=== PATIENT | female | born 1970 | race Asian ===

== ENCOUNTER 2017-03-07 14:34 | Emergency (ER) | payer OTHER ==
[~2017-03-07] VITALS: Ht 162.6 cm; Wt 64.1 kg
[~2017-03-07 14:34] MED LIST: AMOX500C2 PO; IBUP-1542 PO; PRED20TA PO
[2017-03-07 14:39] VITALS: Ht 162.6 cm; Wt 64.1 kg
--- NOTE | 2017-03-07 17:13 | ERD ---
ER Documentation Chief Complaint Chief Complaint sore throat x 5 days HPI 46-year-old otherwise healthy female presents to the emergency department for complaints of throat pain which radiates to her left ear 5 days. Patient is accompanied by her states that they have been to the urgent care 2 times in the past 5 days. She states the pain is an intermittent, 9 out of 10 pain in her throat which radiates to her left ear and worsens with eating or movement. she states she was treated with prednisone, Motrin, and azithromycin. They returned today and were told that the inflammation has significantly improved. The urgent care provider performed an ultrasound to rule out abscess and stated results were normal. Patient has been presented to the emergency department concerned as the pain has persisted. They are requesting to have a CT scan performed. She denies headache, fever, chills, cough, abdominal pain, vomiting or diarrhea. Denies history of IV drug use or diabetes. ROS All systems reviewed and are negative except as per history of present illness. Medications Home Meds Active Scripts Guaifenesin/Pseudoephedrne HCl (Mucinex D ER 1,200-120 mg Tab) 1 Each Tab.er.12h , 2 EACH PO Q8 for 7 Days, TAB Prov:LESLY HUBBARD PA-C 03/07/17 Acetaminophen* (Tylenol*) 325 Mg Tablet, 2 TAB PO Q6 Y for PAIN AND OR ELEVATED TEMP, #20 TAB Prov:LESLY HUBBARD PA-C 03/07/17 Amoxicillin/Potassium Clav (Amox-Clav 875-125 mg Tablet) 875-125 mg Tab, 1 TAB PO BID for 7 Days, #14 TAB Prov:LESLY HUBBARD PA-C 03/07/17 Ibuprofen* (Motrin*) 600 Mg Tab, 600 MG PO Q6, #15 TAB Prov:LISSETT KAISER MD 12/02/15 Prednisone* (Prednisone*) 20 Mg Tab, 40 MG PO DAILY for 4 Days, TAB Prov:LISSETT KAISER MD 12/02/15 Amoxicillin* (Amoxicillin*) 500 Mg Cap, 500 MG PO TID for 10 Days, CAP Prov:LISSETT KAISER MD 12/02/15 PMhx/Soc History of Surgery: No Anesthesia Reaction: No Hx Neurological Disorder: No Hx Respiratory Disorders: No Hx Cardiac Disorders: No Hx Psychiatric Problems: No Hx Miscellaneous Medical Probl: No Hx Alcohol Use: No Hx Substance Use: No Hx Tobacco Use: No Smoking Status: Never smoker Physical Exam Vitals Vital Signs Date Time Temp Pulse Resp B/P Pulse Ox O2 Delivery O2 Flow Rate FiO2 03/07/17 14:39 98.7 66 18 138/77 98 Physical Exam Const: Well-developed, well-nourished, in mild distress. Head: Atraumatic Eyes: Normal Conjunctiva ENT: Normal External Ears, Nose and Mouth. Posterior pharynx non- erythematous. No anterior lymphadenopathy. Bilateral 1+ tonsillar swelling with cobblestoning. No exudate or shift of the uvula. Neck: Full range of motion..~ No meningismus. Resp: Clear to auscultation bilaterally Cardio: Regular rate and rhythm, no murmurs Abd: Soft, non tender, non distended. Normal bowel sounds Skin: No petechiae or rashes Back: No midline or flank tenderness Ext: No cyanosis, or edema Neur: Awake and alert Psych: Normal Mood and Affect Result Diagram: 03/07/175 03/07/171714 Results 24 hrs Laboratory Tests Test 03/07/17 17:15 White Blood Count 8.510^3/ul Red Blood Count 4.6210^6/ul Hemoglobin 14.0g/dl Hematocrit 42.2% Mean Corpuscular Volume 91.3fl Mean Corpuscular Hemoglobin 30.3pg Mean Corpuscular Hemoglobin Concent 33.2g/dl Red Cell Distribution Width 12.3% Platelet Count 86025^3/UL Mean Platelet Volume 9.5fl Neutrophils % 64.4% Lymphocytes % 31.2% Monocytes % 3.4% Eosinophils % 0.0% Basophils % 0.5% Nucleated Red Blood Cells % 0.0/100WBC Neutrophils # 5.510^3/ul Lymphocytes # 2.710^3/ul Monocytes # 0.310^3/ul Eosinophils # 0.010^3/ul Basophils # 0.010^3/ul Nucleated Red Blood Cells # 0.010^3/ul Sodium Level 142mmol/L Potassium Level 4.3mmol/L Chloride Level 105mmol/L Carbon Dioxide Level 25mmol/L Anion Gap 16 Blood Urea Nitrogen 15mg/dl Creatinine 0.66mg/dl Glucose Level 106mg/dl Calcium Level 9.3mg/dl Total Bilirubin 0.5mg/dl Direct Bilirubin 0.00mg/dl Indirect Bilirubin 0.5mg/dl Aspartate Amino Transf (AST/SGOT) 21IU/L Alanine Aminotransferase (ALT/SGPT) 34IU/L Alkaline Phosphatase 82IU/L Total Protein 7.5g/dl Albumin 4.3g/dl Globulin 3.20g/dl Albumin/Globulin Ratio 1.34 Current Medications Medications (Trade) Dose Ordered Sig/Afsaneh Route PRN Reason Start Time Stop Time Status Last Admin Dose Admin IV Flush 10 ml 10 ml STK-MED ONCE .ROUTE 03/07/17 18:37 03/07/17 18:38 DC 03/07/17 19:18 Sodium Chloride (NS) 100 ml @ ud STK-MED ONCE .ROUTE 03/07/17 18:37 03/07/17 18:38 DC 03/07/17 19:18 Iohexol (Omnipaque 300mg/ ml) 150 ml STK-MED ONCE .ROUTE 03/07/17 18:37 03/07/17 18:38 DC 03/07/17 19:18 Ketorolac Tromethamine (Toradol) 30 mg ONCE STAT IM 03/07/17 19:58 03/07/17 19:59 DC Procedures/MDM This is a 46-year-old otherwise healthy and nontoxic-appearing female who presents to the emergency department for 5 days of sore throat which radiates to her left ear. Patient states that she has been treated with steroids and antibiotics without relief of the pain. She denies difficulty breathing, fever , chills, or neck pain. She denies headache, nausea vomiting or diarrhea. Physical exam with evidence of bilateral 1+ tonsillar swelling. There is no erythema or exudate present. There was no lymphadenopathy or shift of the uvula. Patient was seen 2 times by an urgent care provider this week and had an ultrasound performed. Patient requested to have a CT scan performed. Laboratory results within normal limits. CT imaging with contrast unremarkable for acute process. At this time low suspicion for peritonsillar abscess, oral candidiasis, epiglottitis, cancer. Differential diagnosis includes viral versus bacterial pharyngitis, mononucleosis, meningitis, migraine headache, chronic artery aneurysm. I have recommended fluids, anti-inflammatory medication, and antibiotics. Follow-up with primary care physician as needed. Based on patient's history of present illness and physical examination the decision was made to discharge. The patient was re-evaluated after ED treatment and stabilizing measures, and symptoms have improved. There is no evidence of life threatening injuries or illnesses at this time. On re-examination, patient resting in no distress, stable vital signs, reports feeling better and safe for discharge with outpatient follow up with PMD in 1-2 days. Patient given return precautions. Departure Diagnosis: Primary Impression: Sore throat LESLY HUBBARD PA-C Mar 07, 2017 17:13
[2017-03-07 17:32] LABS: BASOPHILS % 0.5 % (0.0-2.0); HEMATOCRIT 42.2 % (37.0-47.0); LYMPHOCYTES # 2.7 10^3/ul (0.8-2.9); LYMPHOCYTES % 31.2 % (15.0-51.0); MEAN CORPUSCULAR HEMOGLOBIN 30.3 pg (29.0-33.0); MEAN CORPUSCULAR HGB CONC 33.2 g/dl (32.0-37.0); MEAN CORPUSCULAR VOLUME 91.3 fl (82.0-101.0); MEAN PLATELET VOLUME 9.5 fl (7.4-10.4); MONOCYTE # 0.3 10^3/ul (0.3-0.9); MONOCYTES % 3.4 % (0.0-11.0); NEUTROPHIL # 5.5 10^3/ul (1.6-7.5); NEUTROPHILS % 64.4 % (39.0-77.0); PLATELET COUNT 335 10^3/UL (140-415); RED BLOOD COUNT 4.62 10^6/ul (4.20-5.40); RED CELL DISTRIBUTION WIDTH 12.3 % (11.5-14.5); WHITE BLOOD COUNT 8.5 10^3/ul (4.8-10.8)
[2017-03-07 18:03] LABS: ALBUMIN 4.3 g/dl (3.3-4.9); ALBUMIN/GLOBULIN RATIO 1.34; BILIRUBIN,INDIRECT 0.5 mg/dl (0-1.1); BILIRUBIN,TOTAL 0.5 mg/dl (0.2-1.3); CALCIUM 9.3 mg/dl (8.4-10.2); CREATININE 0.66 mg/dl (0.44-1.00); POTASSIUM 4.3 mmol/L (3.5-5.1); TOTAL PROTEIN 7.5 g/dl (6.1-8.1)
[2017-03-07] MEDS ORDERED: SOD CHLORIDE 0.9% 100 ML ONE (18:37)
[2017-03-07] MEDS ORDERED: IOHEXOL 300MG/ML 150 ML BTL ONE (18:37)
--- NOTE | 2017-03-07 19:50 | RADRPT ---
PROCEDURE: CT scan of the neck with contrast. CLINICAL INDICATION: Neck pain radiating to left ear. Evaluate for abscess. TECHNIQUE: CT scan of the neck was performed on the multi-slice scanner . Contiguous axial images were obtained throughout the neck with coronal and sagittal reformatted images. 85 cc of Omnipaque 300 was administered. The exam CTDI = 9.35 and the DLP equals 203.4 mGy-cm. DICOM images are availa ble. One or more of the following dose reduction techniques were used: Automated exposure control. Adjustment of the mA and/or kV according to patient size. Use of iterative reconstruction technique. COMPARISON: None available FINDINGS: The oropharynx, hypopharynx, larynx, and trachea are unremarkable. No airway compromise is seen. T he mucosal space of the airway is clear. The tonsillar pillars are normal. The deep spaces of the suprahyoid neck are symmetric and normal. No mass is identified. The parotid glands, submandibular glands, and thyroid gland are all normal. Imaging obtained through the lung apices revealed no acu te abnormality. Normal size lymph nodes are seen within the typical tee bearing stations of the n landy bilaterally. No adenopathy is detected. No mass or fluid collection or other abnormality is se en. The surrounding soft tissues and muscles are unremarkable as well. IMPRESSION: 1. No fluid collection in the soft tissues of the neck to suggest abscess. 2. Bilateral mastoid air cells and middle ear cavities are clear. 3. No mass or lymphadenopathy. RPTAT: HHO .Franky Soler MD, MD Date Time Electronically viewed and signed by .Franky Soler MD, on 03/07/2017 19:50 .O/
[2017-03-07] MEDS ORDERED: AMOX1TAB10 PO (19:57)
[2017-03-07] MEDS ORDERED: KETOROLAC 30 MG INJ IM STA (19:58)
[2017-03-07] MEDS ORDERED: GUAI-106 PO (20:00)
[2017-03-07] MEDS ORDERED: ACET325T33 PO (20:00)
[2017-03-07 21:05] VITALS: BP 142/72; PULSE 57; RESP 20; TEMP 97.7
== END 2017-03-07 21:05 | disposition home or self-care (01) ==
LOC: FTE 14:34
DX: J02.9 Acute pharyngitis, unspecified (principal)
CPT/HCPCS: 70491; 80053; 85025; 96372; 99285; J1885; Q9967

== ENCOUNTER 2018-12-05 16:41 | Emergency (ER) | payer OTHER ==
[~2018-12-05] VITALS: Ht 157.5 cm; Wt 66.0 kg
[~2018-12-05 16:41] MED LIST changes: +ACET325T33 PO; +AMOX1TAB10 PO; +BEN25 PO; +GUAI-106 PO; +MAG355OR14 PO; +OXYC-279 PO
[2018-12-05 17:15] VITALS: Ht 157.5 cm; Wt 66.0 kg
[2018-12-05] MEDS ORDERED: KETOROLAC 30 MG INJ IM STA (18:39)
[2018-12-05 19:20] VITALS: BP 139/80; PULSE 90; RESP 18
== END 2018-12-05 22:42 | disposition home or self-care (01) ==
LOC: FTE 16:41
DX: M54.2 Cervicalgia (principal)
CPT/HCPCS: 96372; J1885